=== PATIENT | female | born 1940 | race Hispanic/Latino ===

== ENCOUNTER 2022-03-08 10:58 | Outpatient (CLI) | payer MEDICARE, OTHER | END 2022-03-08 10:59 | disposition home or self-care (01) | LOC: CSHRAD 10:58 | PROVIDERS: ATTEND Internal Medicine | DX: M54.6 Pain in thoracic spine (principal); M47.814 Spondylosis without myelopathy or radiculopathy, thoracic region; I10 Essential (primary) hypertension | CPT/HCPCS: 36415; 72072; 80053; 80061; 84439; 84443; 85025 ==

== ENCOUNTER 2025-04-29 12:06 | Outpatient (CLI) | payer MEDICARE, OTHER | END 2025-04-29 12:07 | disposition home or self-care (01) | LOC: CSHRAD 12:06 | PROVIDERS: ATTEND Family Medicine Sports Medicine | DX: M54.50 Low back pain, unspecified (principal); M47.816 Spondylosis without myelopathy or radiculopathy, lumbar region; M41.9 Scoliosis, unspecified | CPT/HCPCS: 72100 ==